=== PATIENT | female | born 1970 | race Asian ===

== ENCOUNTER → 2017-09-01 | Outpatient (CLI) | payer OTHER ==
--- NOTE | 2017-09-02 14:11 | MAMMOGRAPHY REPORT ---
BILATERAL DIGITAL SCREENING MAMMOGRAM TOMOSYNTHESIS WITH CAD: 09/01/2017 CLINICAL HISTORY: Routine screening. TECHNIQUE: Breast tomosynthesis in addition to standard 2D mammography was performed. Current study was also evaluated with a Computer Aided Detection (CAD) system. COMPARISON: Comparison is made to exams dated: 08/29/2016 mammogram, 08/23/2015 mammogram, 08/21/2014 mammogram, 08/18/2013 mammogram, 08/16/2012 mammogram, and 08/16/2006 mammogram - [facility]. BREAST COMPOSITION: The tissue of both breasts is extremely dense, which lowers the sensitivity of m ammography. FINDINGS: The parenchymal pattern is unchanged. No developing mass, architectural distortion or clus ter of suspicious microcalcifications is seen in either breast. IMPRESSION: ACR BI-RADS CATEGORY 2: BENIGN There is no mammographic evidence of malignancy. A 1 year screening mammogram is recommended. The pa tient will receive written notification of the results. Approximately 10% of breast cancers are not detected with mammography. A negative mammographic report should not delay biopsy if a clinically suggestive mass is present. Le Garnett M.D. ay/:09/01/2017 15:40:59 Desizing Machine Operator: Speedy COSTA(R)(M), [facility] letter sent: Normal 1/2 BI-RADS Code: ACR BI-RADS Category 2: Benign
== END | disposition home or self-care (01) ==
LOC: C.MAMM 11:29
PROVIDERS: ATTEND Obstetrics & Gynecology
DX: Z12.31 Encounter for screening mammogram for malignant neoplasm of breast (principal)

== ENCOUNTER → 2017-09-18 | Outpatient (CLI) | payer BC, OTHER ==
--- NOTE | 2017-09-18 10:36 | DIAGNOSTIC IMAGING REPORT ---
SOFT TISS HEAD/NECK-THYROID CLINICAL HISTORY: 47 years-old Female presenting with NON TOXIC SINGLE THYROID NODULE. TECHNIQUE: Real-time grayscale and color Doppler ultrasound imaging of the thyroid and base of the neck was performed. COMPARISON: 06/19/2015. FINDINGS: Right lobe: Normal echogenicity and echotexture. The right lobe of the thyroid measures 5.8 x 2.1 x 1.5 cm. No nodules. No parenchymal hyperemia. Left lobe: Normal echogenicity and echotexture. The left lobe of the thyroid measures 6.7 x 2.3 x 2.5 cm. 3 nodules detailed below: 1) interpolar heterogeneously isoechoic well-defined nodule measuring 1.1 x 1.1 x 0.8 cm. Previously the upper pole nodule measured 1.7 x 1.0 x 1.1 cm. 2) interpolar heterogeneously isoechoic nodule measuring 1.0 x 0.9 x 1.0 cm. This is not well-defined. This was not clearly visualized on the prior exam. 3) dominant lower pole heterogeneously isoechoic well-defined nodule measuring 3.6 x 2.5 x 2.5 cm Previously lower pole nodule measured 1.4 x 2.1 x 2.7 cm. Isthmus: The isthmus measures 2 mm in thickness. No nodules. IMPRESSION: Dominant left thyroid lobe nodules. Fine-needle aspiration of the dominant lower pole nodule and the apparent new interpolar region poorly defined nodule by the [place] [employer] criteria. Electronically signed by: Lucien Hernandez M.D. 09/18/2017 10:35 AM Dictated Date/Time: 09/18/2017 10:30 AM
== END | disposition home or self-care (01) ==
LOC: C.ULTR 09:55
PROVIDERS: ATTEND Student in an Organized Health Care Education/Training Program
DX: E04.2 Nontoxic multinodular goiter (principal)

== ENCOUNTER → 2017-11-13 | Outpatient (CLI) | payer BC | END | disposition home or self-care (01) | LOC: C.PAPS 11:16 | PROVIDERS: ATTEND Obstetrics & Gynecology | DX: Z01.419 Encounter for gynecological examination (general) (routine) without abnormal findings (principal) ==